=== PATIENT | male | born 1980 | race Asian ===

== ENCOUNTER 2020-04-18 19:25 | Emergency (ER) | payer OTHER ==
[~2020-04-18] VITALS: Ht 165.1 cm; Wt 86.4 kg
[2020-04-18 19:26] VITALS: BP 129/79
[2020-04-18] MEDS ORDERED: PRED20TA PO (20:09)
[2020-04-18] MEDS ORDERED: BENA25CA4 PO (20:09)
[2020-04-18] MEDS ORDERED: predniSONE 20 MG TAB PO ONE (20:15)
[2020-04-18] MEDS ORDERED: diphenhydrAMINE 50MG CAP PO ONE (20:15)
== END 2020-04-18 20:20 | disposition home or self-care (01) ==
LOC: M ED 19:25
DX: S90.862A Insect bite (nonvenomous), left foot, initial encounter (principal); S60.561A Insect bite (nonvenomous) of right hand, initial encounter; S60.862A Insect bite (nonvenomous) of left wrist, initial encounter; W57.XXXA Bitten or stung by nonvenomous insect and other nonvenomous arthropods, initial encounter; Y92.9 Unspecified place or not applicable; Y93.9 Activity, unspecified; Y99.9 Unspecified external cause status